=== PATIENT | male | born 1995 | race American Indian/Alaskan Native ===

== ENCOUNTER 2017-09-21 08:01 | Emergency (ER) | payer SELFPAY ==
[2017-09-21 08:37] VITALS: BP 149/90
--- NOTE | 2017-09-21 09:41 | Emergency Department Report ---
Chief Complaint: Urogenital-Male Stated Complaint: ABDOMINAL PAIN Time Seen by Provider: 09/21/17 09:17 - HPI History of Present Illness: Patient is a 22-year-old asthmatic male who presented with a penile discharge for approximately 5 months. Patient states she's been treated twice his symptoms have gotten better but then returned. Patient claims she is not sexually active anymore. Patient denies any fevers chills scrotal swelling or scrotal pain. Patient states symptoms are worse at night. Patient denies any actual dysuria but states there is a white penile discharge. Patient is coming in stating he would like a prescription for doxycycline because he believes he has been misdiagnosed. Patient states each time he was treated he was given azithromycin and Rocephin. - ROS Review of Systems: All systems reviewed and are negative - Exam Vital Signs: Vital Signs 09/21/17 08:30 Temperature 97.6 F Pulse Rate 81 Respiratory 18 Rate Blood Pressure 149/90 Blood Pressure 149/90 [Right] O2 Sat by Pulse 95 Oximetry Physical Exam: Patient's abdomen is soft and nontender heart and lungs are within normal limits he is in no acute distress. MSE screening note: Focused history and physical exam performed. Due to findings the following was ordered: ED Medical Decision Making - Medical Decision Making Patient is a nonmedical emergency and was screened by me and turned over to registration. Patient did not pay the hospital $150 co-pay. The patient was given referrals to urgent care for treatment of his symptoms. ED Disposition for MSE Clinical Impression: STD (sexually transmitted disease) Disposition: Z-07 MED SCREENING EXAM-LEFT Is pt being admited?: No Does the pt Need Aspirin: No Condition: Stable Referrals: PRIMARY CARE, [Primary Care Provider] - 3-5 Days
== END 2017-09-21 09:35 | disposition left against medical advice (07) ==
LOC: ED 08:01
DX: R10.9 Unspecified abdominal pain (principal); Z53.21 Procedure and treatment not carried out due to patient leaving prior to being seen by health care provider